=== PATIENT | male | born 2000 | race Two or more races ===

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

== ENCOUNTER 2021-06-11 21:33 | Emergency (ER) | payer MEDICAID ==
[~2021-06-11] VITALS: Ht 180.3 cm; Wt 102.1 kg
[2021-06-11 22:01] VITALS: BP 133/85
== END 2021-06-12 05:04 | disposition left against medical advice (07) ==
LOC: ER 21:33
DX: H57.89 Other specified disorders of eye and adnexa (principal); Z53.21 Procedure and treatment not carried out due to patient leaving prior to being seen by health care provider